=== PATIENT | female | born 1970 | race Caucasian/White ===

== ENCOUNTER 2022-09-10 12:52 | Emergency (ER) | payer BC ==
[2022-09-10] MEDS ORDERED: Sodium Chloride 0.9% 10 ML Syringe FLUSH PRN (13:08)
[2022-09-10 13:41] LABS: BASOPHILS ABSOLUTE AUTO 0.05 K/uL (0.00-0.20); BASOPHILS PERCENT AUTO 0.6 % (0.0-2.0); EOSINOPHILS ABSOLUTE AUTO 0.08 K/uL (0.00-0.50); HEMATOCRIT 44.5 % (34.0-46.0); HEMOGLOBIN 14.9 g/dL (11.7-15.5); LYMPHOCYTES ABSOLUTE AUTO 1.83 K/uL (0.50-3.50); LYMPHOCYTES PERCENT AUTO 23.5 % (10.0-50.0); MEAN CORPUSCULAR HEMOGLOBIN 30.7 pg (28.2-33.3); MEAN CORPUSCULAR HGB CONC 33.5 g/dL (31.7-36.0); MEAN CORPUSCULAR VOLUME 91.8 fL (84.0-98.0); MONOCYTES ABSOLUTE AUTO 0.93 K/uL (0.00-1.00); NEUTROPHILS ABSOLUTE AUTO 4.89 K/uL (1.40-7.00); NEUTROPHILS PERCENT AUTO 62.9 % (45.0-80.0); PLATELET COUNT,PLT 304 K/uL (150-350); RED BLOOD CELL COUNT 4.85 M/uL (3.77-5.09); RED CELL DISTRIBUTION WIDTH 12.8 % (11.2-14.1); WHITE BLOOD CELL COUNT,WBC 7.8 K/uL (4.0-10.2)
[2022-09-10 13:50] LABS: HEMOGLOBIN A1C 6.7 % (4.3-5.7)
[2022-09-10 14:00] LABS: ALBUMIN 4.2 g/dL (3.4-5.0); ANION GAP 10.3 meq/L (7-15); BILIRUBIN TOTAL 0.6 mg/dL (0.2-1.0); CALCIUM 9.9 mg/dL (8.5-10.1); CARBON DIOXIDE,CO2 29.7 mmol/L (21.0-32.0); CREATININE 1.87 mg/dL (0.51-1.17); EST CRCL DRUG DOSING (CG) 33.69 mL/min; POTASSIUM,K 3.7 mmol/L (3.5-5.1)
[2022-09-10 14:55] LABS: APPEARANCE,URINE CLOUDY; BILIRUBIN,URINE SMALL (NEGATIVE); COLOR,URINE DARK YELLOW; GLUCOSE,URINE NEGATIVE (NEGATIVE); KETONES,URINE TRACE mg/dL (NEGATIVE); LEUKOCYTE ESTERASE,URINE SMALL (NEGATIVE); NITRITE,URINE NEGATIVE (NEGATIVE); OCCULT BLOOD,URINE TRACE-LYSED (NEGATIVE); PROTEIN,URINE 100 mg/dL (NEGATIVE); UROBILINOGEN,URINE 0.2 E.U./dL (0.2-1.0)
[2022-09-10] MEDS: Sodium Chloride 0.9% 1,000 ML IV ONE (14:59)
[2022-09-10 15:15] LABS: BACTERIA,URINE MANY /HPF (NONE TO FEW); RBC,URINE 0-5 /HPF; WBC,URINE 75-100 /HPF
[2022-09-10 15:16] LABS: EPITHELIAL CELLS,URINE MODERATE /LPF
== END 2022-09-10 15:35 | disposition home or self-care (01) ==
LOC: LL.ED 12:52
DX: N30.01 Acute cystitis with hematuria (principal); E86.0 Dehydration; E11.9 Type 2 diabetes mellitus without complications; Z88.5 Allergy status to narcotic agent; Z91.040 Latex allergy status; Z88.1 Allergy status to other antibiotic agents; Z79.82 Long term (current) use of aspirin
CPT/HCPCS: 36415; 71046; 80053; 81001; 83036; 85025; 96360; 99283; 99285-25; J7030